=== PATIENT | female | born 2000 | race Caucasian/White ===

== ENCOUNTER → 2020-03-27 15:21 | Outpatient (BNVA) | payer BC, SELFPAY | PROVIDERS: Referring Provider Dermatology; Visit Provider Dermatology | DX: L70.8 Other acne (principal); L81.3 Cafe au lait spots; W89.1XXA Exposure to tanning bed, initial encounter; X58.XXXA Exposure to other specified factors, initial encounter | CPT/HCPCS: 99203; 99204 ==

== ENCOUNTER → 2020-08-12 16:49 | Outpatient (BNVA) | payer BC, SELFPAY | PROVIDERS: Visit Provider Nurse Practitioner Family | DX: Z20.828 Contact with and (suspected) exposure to other viral communicable diseases (principal); J06.9 Acute upper respiratory infection, unspecified | CPT/HCPCS: 87635 ==

== ENCOUNTER 2024-08-30 17:07 | Emergency (ER) | payer SELFPAY ==
--- NOTE | 2024-08-30 18:06 | ECG_ITS ---
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 Measurements Intervals [place] Rate: 93 P: 96 CA: 122 QRS: 45 QRSD: 96 T: 79 QT: 331 QTc: 413 Interpretive Statements SINUS RHYTHM INCOMPLETE RIGHT BUNDLE BRANCH BLOCK [90+ ms QRS DURATION, TERMINAL R IN V1/V2, 40+ ms S IN I/aVL/V4/V5/V6] No previous ECG available for comparison Electronically Signed On 08-31-2024 08:58:35 CARDIOPULMONARY SPECIALIST by Faustino Merritt M.D. [id number]
[2024-08-30 18:10] VITALS: BP 114/76; PULSE 96; RESP 16; TEMP 36.7; O2SAT 98; BMI 18.2
[2024-08-30 19:43] LABS: Basophils # 0.1 10^3/uL (0.0-0.1); Basophils % 0.6 %; Eosinophils # 0.1 10^3/uL (0.0-0.8); Eosinophils % 0.9 %; Hematocrit 42.2 % (36-47); Mean Corpuscular HGB Conc 34.4 g/dL (30-55); Mean Corpuscular Hemoglobin 32.3 pg (27-33); Mean Platelet Volume 10.4 fL (7.4-10.4); Monocytes # 0.5 10^3/uL (0.2-0.9); Monocytes % 5.5 %; Neutrophils # 5.88 10^3/uL (1.8-7.7); Neutrophils % 61.7 %; Nucleated Red Blood Cells % 0 %; Platelet Count 275 10^3/cmm (157-399); Red Blood Count 4.49 10^6/uL (3.85-5.65); Red Cell Distribution Width 11.4 % (12.1-15.1); White Blood Count 9.55 10^3/uL (3.29-11.43)
[2024-08-30 19:55] LABS: HCG, Serum Qual Negative (Negative)
[2024-08-30 20:03] LABS: Alanine Aminotransferase 8 U/L (0-33); Albumin Level 4.6 g/dL (3.5-5.2); Alkaline Phosphatase 60 U/L (35-105); Anion Gap 14.4 (5-19); Aspartate Amino Transferase 17 U/L (0-32); Blood Urea Nitrogen 15 mg/dL (6-20); Calcium 9.1 mg/dL (8.5-10.5); Carbon Dioxide 27 mmol/L (22-29); Chloride 102 mmol/L (98-107); Creatinine Clr Calc Pharmacy 136.1114; Globulin 2.4 g/dL (1.3-4.6); Glomerular Filtration Rate 150.3 mL/min (90-130); Glucose 106 mg/dL (65-115); Lipase 27 U/L (13-60); Osmolality Calculated 289 mOsm/kg (285-295); Potassium 4.4 mmol/L (3.5-5.1); Sodium 139 mmol/L (136-145); Total Bilirubin 0.5 mg/dL (0.15-1.2)
--- NOTE | 2024-08-30 20:19 | ED_ITS ---
HPI - Arrhythmia/Palpitations 2 General: Chief Complaint: Arrhythmia/Palpitations Stated Complaint: HR rapid, n, Gerd issues Time Seen by Provider: 08/30/24 20:14 History of Present Illness: 24-year-old female presents with epigast ventura discomfort that is consistent with reflux or gastritis. She reports been going on for about 3 days. She is use some Tums with some minimal relief but it comes back. She reports she took 1 Prilosec and it helped for a while and then it came back. Patient denies any right upper quadrant pain, vomiting, diarrhea or other systemic complaints. Associated symptoms: Reports nausea Related Data Allergies Allergy/AdvReac Type Severity Reaction Status Date / Time No Known Allergies Allergy Verified 08/30/24 18:14 Review of Systems 2 Const: Denies: fever(s) or chills Card: Reports: palpitations; Denies: chest pain or irregular heart rhythm Resp: Denies: dyspnea, productive cough or wheezing GI: Reports: abdominal pain (Epigastric), nausea and heartburn Neuro: Denies: dizziness PFSH ED 2 PFSH: Social History Smoking and tobacco/nicotine status: never used tobacco/nicotine Second hand smoke exposure: No Alcohol intake: never Female Reproductive History: Date of last menstrual period: 08/11/24 Physical Exam 2 Const: COMMON NORMALS: no acute distress, patient oriented x3 and healthy appearing GENERAL APPEARANCE: cooperative; not ill appearing Resp: COMMON NORMALS: normal respiratory effort, No retractions and clear to auscultation bilaterally AUSCULTATION: clear to auscultation bilaterally Cardio: COMMON NORMALS: regular rate and regular rhythm RATE: regular rate RHYTHM: regular rhythm Extremity: COMMON NORMALS: normal to inspection and full ROM Neuro: COMMON NORMALS: patient oriented x3, moves all extremities, no focal motor deficits and no sensory deficits noted Psych: COMMON NORMALS: mental status grossly normal, Normal thought process present and cooperative THOUGHT PROCESS: Normal thought process present Skin: COMMON NORMALS: no rashes or lesions noted and turgor normal GENERAL SKIN EXAM: no rashes or lesions noted and turgor normal Course 2 Vital Signs: Vital signs: Vital Signs Temperature 98.1 F 08/30/24 18:10 Pulse Rate 96 08/30/24 18:10 Respiratory Rate 16 08/30/24 18:10 Blood Pressure 114/76 08/30/24 18:10 Pulse Oximetry 98 08/30/24 18:10 Oxygen Delivery Me thod Room Air 08/30/24 18:10 MDM - Arrhythmia/Palpitations Medical Decision Making Patient's diagnostic studies were ordered reviewed which showed no acute findings. Patient with a negative EKG with any acute or concerning findings. Patient's symptoms completely resolved with a GI cocktail. Discussed with her supportive care. She is stable and discharged home. Lab Data 08/30/24 19:34 08/30/24 19:34 Laboratory Results WBC 9.55 10^3/uL (3.29-11.43) 08/30/24 19:34 RBC 4.49 10^6/uL (3.85-5.65) 08/30/24 19:34 Hgb 14.50 g/dL (11.27-16.99) 08/30/24 19:34 Hct 42.2 % (36-47) 08/30/24 19:34 MCV 94.0 fl (85-98) 08/30/24 19:34 MCH 32.3 pg (27-33) 08/30/24 19:34 MCHC 34.4 g/dL (30-55) 08/30/24 19:34 RDW 11.4 % (12.1-15.1) L 08/30/24 19:34 Plt Count 275 10^3/cmm (157-399) 08/30/24 19:34 MPV 10.4 fL (7.4-10.4) 08/30/24 19:34 Neut % (Auto) 61.7 % 08/30/24 19:34 Lymph % (Auto) 31.0 % 08/30/24 19:34 [place] % (Auto) 5.5 % 08/30/24 19:34 Eos % (Auto) 0.9 % 08/30/24 19:34 Baso % (Auto) 0.6 % 08/30/24 19:34 Neut # (Auto) 5.88 10^3/uL (1.8-7.7) 08/30/24 19:34 Lymph # (Auto) 3.0 10^3/uL (0.8-4.8) 08/30/24 19:34 [place] # (Auto) 0.5 10^3/uL (0.2-0.9) 08/30/24 19:34 Eos # (Auto) 0.1 10^3/uL (0.0-0.8) 08/30/24 19:34 Baso # (Auto) 0.1 10^3/uL (0.0-0.1) 08/30/24 19:34 Nucleated RBC % (auto) 0 % 08/30/24 19:34 Nucleated RBCs # 0.0 /100WBC 08/30/24 19:34 Sodium 139 mmol/L (136-145) 08/30/24 19:34 Potassium 4.4 mmol/L (3.5-5.1) 08/30/24 19:34 Chloride 102 mmol/L (98-107) 08/30/24 19:34 Carbon Dioxide 27 mmol/L (22-29) 08/30/24 19:34 Anion Gap 14.4 (5-19) 08/30/24 19:34 BUN 15 mg/dL (6-20) 08/30/24 19:34 Creatinine 0.5 mg/dL (0.5-0.9) 08/30/24 19:34 GFR Calculation 150.3 mL/min (90-130) H 08/30/24 19:34 Glucose 106 mg/dL (65-115) 08/30/24 19:34 Calculated Osmolality 289 mOsm/kg (285-295) 08/30/24 19:34 Calcium 9.1 mg/dL (8.5-10.5) 08/30/24 19:34 Total Bilirubin 0.5 mg/dL (0.15-1.2) 08/30/24 19:34 AST 17 U/L (0-32) 08/30/24 19:34 ALT 8 U/L (0-33) 08/30/24 19:34 Alkaline Phosphatase 60 U/L (35-105) 08/30/24 19:34 Total Protein 7.0 g/dL (6.6-8.7) 08/30/24 19:34 Albumin 4.6 g/dL (3.5-5.2) 08/30/24 19:34 Globulin 2.4 g/dL (1.3-4.6) 08/30/24 19:34 Lipase 27 U/L (13-60) 08/30/24 19:34 HCG, Qual Negative (Negative) 08/30/24 19:34 All radiology interpretation(s) finalized by discharge Discharge Plan Discharge Patient Disposition: Home Clinical Impression: Acid reflux, Colicky epigastric pain Condition: Stable Discharge Orders: Discharge ED (Routine); Ordered 08/30/24 Ordered By: Ryder Dupree Discharge Diet: Advance as tolerated Discharge Activity: Resume usual activity Patient Instructions: GERD (Gastroesophageal Reflux Disease) (DC), Esophageal Spasm (ED), Abdominal Pain (ED), Opioid Safety, Pain Management Activity Restrictions/Additional Instructions: Start Pepcid twice daily. You may use Maalox in addition to the Pepcid. Follow-up with your primary care provider if symptoms or not resolved in the next week. Coding Level of Care Code ED Cushion Maker for Yong Miller
[2024-08-30] MEDS: lidocaine 2% viscous 15 ML, aluminum-mag hydrox-simethicon 30 ML, sucralfate oral liq 1 GM PO (20:51)
[2024-08-30 21:24] VITALS: BP 105/65; PULSE 87; RESP 20; O2SAT 98
== END 2024-08-30 21:26 | disposition home or self-care (01) ==
PROVIDERS: Emergency Medicine; Emergency Provider Student in an Organized Health Care Education/Training Program
DX: K21.9 Gastro-esophageal reflux disease without esophagitis (principal)
CPT/HCPCS: 36415; 80053; 83690; 84703; 85025; 93005; 99284

== ENCOUNTER → 2025-03-26 14:18 | Outpatient (BNVA) | payer MEDICAID, SELFPAY | PROVIDERS: Visit Provider Nurse Practitioner Women's Health | DX: Z36.87 Encounter for antenatal screening for uncertain dates (principal); Z3A.10 10 weeks gestation of pregnancy | CPT/HCPCS: 76801; 81025 ==

== ENCOUNTER → 2025-04-02 10:50 | Outpatient (BNVA) | payer MEDICAID, SELFPAY | PROVIDERS: Visit Provider Nurse Practitioner Women's Health | DX: Z34.90 Encounter for supervision of normal pregnancy, unspecified, unspecified trimester (principal) | CPT/HCPCS: 80307; 84315; 84443; 85025; 86592; 86762; 86803; 87086; 87340; 87491; 87591; 87661; 87806 ==

== ENCOUNTER → 2025-04-15 10:44 | Outpatient (BNVA) | payer MEDICAID, SELFPAY | PROVIDERS: Visit Provider Obstetrics & Gynecology | DX: Z34.90 Encounter for supervision of normal pregnancy, unspecified, unspecified trimester (principal); Z12.4 Encounter for screening for malignant neoplasm of cervix | CPT/HCPCS: 84315; 86850; 86900; 87624 ==

== ENCOUNTER → 2025-05-13 12:44 | Outpatient (BNVA) | payer MEDICAID, SELFPAY | PROVIDERS: Visit Provider Nurse Practitioner Women's Health | DX: O26.819 Pregnancy related exhaustion and fatigue, unspecified trimester (principal); Z01.419 Encounter for gynecological examination (general) (routine) without abnormal findings | CPT/HCPCS: 80053; 82105; 82306; 82607; 84315; 84443; 85025 ==

== ENCOUNTER 2025-05-22 15:14 | Outpatient (CLI) | payer MEDICAID, SELFPAY ==
--- NOTE | 2025-05-22 15:15 | USR_ITS ---
PROCEDURE INFORMATION: Exam: US After First Trimester, Transabdominal Exam date and time: 05/22/2025 3:32 PM Age: 25 years old Clinical indication: Screening exam; Routine US, uterus; Additional info: Z34.90 - encounter for supervision of normal , u. . . , LABS AND CLINICAL REPORTS: Last menstrual period start date: Unknown Gestational age (Established): 18 w 1 d Estimated due date (Established): 10/22/2025 TECHNIQUE: Imaging protocol: Real-time transabdominal obstetrical ultrasound of the maternal pelvis and a second or third trimester with image documentation. COMPARISON: US OB <= 14 weeks fetus [id number] 03/26/2025 2:21 PM FINDINGS: Gestation: Single intrauterine gestation. heart rate: 155 bpm presentation and position: Breech. Placenta: Unremarkable. No subchorionic bleed. Placenta is anterior. Amniotic fluid (Qualitative): Amniotic fluid is normal for gestational age. Amniotic fluid index: Not measured. ANATOMY: midline falx: Normal cerebellum: Normal lateral ventricles: Normal cisterna magna: Normal choroid plexus: Normal face: Upper lip is normal heart four-chamber view, heart size and position: Normal heart right ventricular outflow tract: Normal heart left ventricular outflow tract: Normal kidneys: Normal stomach: Normal urinary bladder: Normal spine: Normal Umbilical cord and insertion: Normal upper limbs: Normal lower limbs: Normal external genitalia: Normal male genitalia BIOMETRY: Gestational age (AUA): 18 weeks 2 days Estimated due date (AUA): 10/21/2025 Estimated weight: 248.27 g. EFW by AC, BPD, FL, HC, [place]lock 1985 Biparietal diameter (BPD): 3.99 cm. EGA (BPD) is 18 w 1 d. 49.4 % percentile Head circumference (HC): 15.75 cm. EGA (HC) is 18 w 4 d. 67.3 % percentile Abdominal circumference (AC): 13.54 cm. EGA (AC) is 19 w 0 d. 75.3 % percentile Femur length (FL): 2.69 cm. EGA (FL) is 18 w 1 d. 46.3 % percentile HC/AC: 1.16. (Normal range: 1.08 - 1.27) FL/HC: 17.08. (Normal range: 15.89 - 18.09) FL/BPD: 67.42 FL/AC: 19.87 MATERNAL: Uterus: Unremarkable. Cervix: Cervical length measures 3.8 cm. Right ovary/adnexa: Obscured by lack of adequate acoustic window. Left ovary/adnexa: Obscured by lack of adequate acoustic window. Intraperitoneal space: No intraperitoneal free fluid. US/US OB >= 14 weeks fetus [id number] IMPRESSION: 1. Single live intrauterine with estimated gestational age 18 weeks 2 days and due date 10/21/2025. 2. Visualized anatomy within normal limits.
== END 2025-05-22 15:15 | disposition home or self-care (01) ==
LOC: RAD 15:16
PROVIDERS: Visit Provider Nurse Practitioner Women's Health
DX: Z34.90 Encounter for supervision of normal pregnancy, unspecified, unspecified trimester (principal); Z34.92 Encounter for supervision of normal pregnancy, unspecified, second trimester; Z3A.18 18 weeks gestation of pregnancy
CPT/HCPCS: 76805

== ENCOUNTER → 2025-06-12 13:45 | Outpatient (BNVA) | payer MEDICAID, SELFPAY | PROVIDERS: Visit Provider Obstetrics & Gynecology | DX: O26.899 Other specified pregnancy related conditions, unspecified trimester (principal); Z67.91 Unspecified blood type, Rh negative | CPT/HCPCS: 84315 ==

== ENCOUNTER → 2025-07-08 13:10 | Outpatient (BNVA) | payer MEDICAID, SELFPAY | PROVIDERS: Visit Provider Nurse Practitioner Women's Health | DX: O26.892 Other specified pregnancy related conditions, second trimester (principal); Z3A.24 24 weeks gestation of pregnancy; L30.8 Other specified dermatitis; L29.9 Pruritus, unspecified; Z67.91 Unspecified blood type, Rh negative | CPT/HCPCS: 80053; 82306; 84315; 84550 ==

== ENCOUNTER → 2025-07-12 16:44 | Outpatient (BNVA) | payer MEDICAID, SELFPAY | PROVIDERS: Visit Provider Nurse Practitioner Women's Health | DX: Z34.90 Encounter for supervision of normal pregnancy, unspecified, unspecified trimester (principal) | CPT/HCPCS: 82542 ==

== ENCOUNTER → 2025-08-05 13:19 | Outpatient (BNVA) | payer MEDICAID, SELFPAY | PROVIDERS: Visit Provider Obstetrics & Gynecology | DX: O26.899 Other specified pregnancy related conditions, unspecified trimester (principal); Z34.90 Encounter for supervision of normal pregnancy, unspecified, unspecified trimester; Z67.91 Unspecified blood type, Rh negative; Z3A.28 28 weeks gestation of pregnancy | CPT/HCPCS: 82950; 84315; 85025 ==